=== PATIENT | male | born 1980 | race American Indian/Alaskan Native ===

== ENCOUNTER 2020-05-15 02:01 | Emergency (ER) | payer SELFPAY ==
[2020-05-15 07:41] VITALS: BP 139/93
[2020-05-15] MEDS ORDERED: IBUPROFEN 600 MG TAB PO ONE (07:51)
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
== END 2020-05-15 09:35 | disposition home or self-care (01) ==
LOC: ED 02:01
DX: S16.1XXA Strain of muscle, fascia and tendon at neck level, initial encounter (principal); S39.012A Strain of muscle, fascia and tendon of lower back, initial encounter; S80.01XA Contusion of right knee, initial encounter; F17.200 Nicotine dependence, unspecified, uncomplicated; V89.2XXA Person injured in unspecified motor-vehicle accident, traffic, initial encounter; Y93.89 Activity, other specified; Y92.410 Unspecified street and highway as the place of occurrence of the external cause; Y99.8 Other external cause status